=== PATIENT | male | born 2000 | race Caucasian/White ===

== ENCOUNTER 2022-06-02 00:13 | Inpatient (IN) | payer OTHER ==
[2022-06-02] MEDS ORDERED: LORazepam 2 MG/ML INJ IV STA ×7 (00:41→07:11)
[2022-06-02] MEDS ORDERED: SODIUM CHLORIDE 0.9% 1,000 ML IV ONE (00:41)
[2022-06-02 00:46] LABS: Glucose,Whole Blood 97 mg/dL (70-110)
--- NOTE | 2022-06-02 01:20 | CT ---
EXAMINATION TYPE: CT brain wo con DATE OF EXAM: 06/02/2022 COMPARISON: None HISTORY: AMS, S/P [id number] CT DLP: 1129.5 mGycm Automated exposure control for dose reduction was used. Ventricles of normal size. There is no mass effect or midline shift. No sign of intracranial hemorrha ge. The calvarium is intact. Skull base is intact. There is normal aeration of the mastoid sinuses. IMPRESSION: Negative unenhanced head CT scan.
[2022-06-02 01:40] LABS: Basophils # (A) 0.1 k/uL (0-0.2); Basophils % (A) 0 %; Eosinophils % (A) 0 %; HCT 44.7 % (39.0-53.0); HGB 15.8 gm/dL (13.0-17.5); Lymphocytes # (A) 1.1 k/uL (1.0-4.8); Lymphocytes % (A) 7 %; MCH 33.8 pg (25.0-35.0); MCHC 35.4 g/dL (31.0-37.0); MCV 95.3 fL (80.0-100.0); Mean Platelet Volume 9.2; Monocytes # (A) 0.8 k/uL (0-1.0); Monocytes % (A) 5 %; Neutrophils # (A) 14.5 k/uL (1.3-7.7); Neutrophils % (A) 87 %; Platelet Count 194 k/uL (150-450); RBC 4.69 m/uL (4.30-5.90); RDW 11.7 % (11.5-15.5); WBC 16.6 k/uL (4.0-11.0)
[2022-06-02 01:50] LABS: Partial Thromboplastin Time 22.8 sec (22.0-30.0)
[2022-06-02 01:52] LABS: AST 28 U/L (17-59); African American GFR (CKD) >90 (>60 ml/min/1.73 sqM); Albumin 5.1 g/dL (3.5-5.0); Alcohol <10 mg/dL; Alkaline Phosphatase 53 U/L (38-126); Anion Gap 17 mmol/L; Blood Urea Nitrogen 11 mg/dL (9-20); Calcium 9.9 mg/dL (8.4-10.2); Carbon Dioxide 17 mmol/L (22-30); Chloride 109 mmol/L (98-107); Glucose 84 mg/dL (74-99); Non-African American GFR(CKD) >90 (>60 ml/min/1.73 sqM); Potassium 5.1 mmol/L (3.5-5.1); Sodium 143 mmol/L (137-145); Total Bilirubin 0.4 mg/dL (0.2-1.3); Total Protein 7.6 g/dL (6.3-8.2)
--- NOTE | 2022-06-02 01:52 | ED ---
General Adult HPI - General Chief complaint: Head Injury Stated complaint: AMS Time Seen by Provider: 06/02/22 00:39 Source: EMS Mode of arrival: EMS Limitations: altered mental status - History of Present Illness Initial comments: This patient is a 21-year-old man who is brought to have evaluation related to possibility of head injury and a suspected seizure which had occurred on afternoon. The patient's mother reports that the patient had gone into the bathroom. He resides with his grandmother who reportedly heard a sound like someone falling. When she checked him it appeared he had a seizure. The patient's then regained consciousness and did not want to go to the hospital at that time. He wanted to rest. He spent most of the day resting. The patient's mother had actually brought him to have evaluation on that day but the hospital was very busy and he wanted to go home instead. Today he spent most of the day resting. Before I could see the patient, here in emergency department he had another seizure while in the while in the room. Onset/Timin -: days(s) Location: head - Related Data Previous Rx's Medication Instructions Recorded levETIRAcetam [Keppra] 1,000 mg PO Q12HR 60 Days #240 tab 06/03/22 Allergies Allergy/AdvReac Type Severity Reaction Status Date / Time No Known Allergies Allergy Verified 06/02/22 07:06 Review of Systems ROS Statement: Those systems with pertinent positive or pertinent negative responses have been documented in the HPI. ROS Other: All systems not noted in ROS Statement are negative. Limitations: ROS unobtainable due to patients medical condition (Patient appears postictal) Past Medical History - Past Family History family Additional Family Medical History / Comment(s): no reported seizures General Exam Limitations: no limitations General appearance: obtunded Head exam: Present: atraumatic, normocephalic Eye exam: Present: normal appearance, PERRL, EOMI. Absent: scleral icterus, conjunctival injection ENT exam: Present: normal oropharynx Neck exam: Present: normal inspection, full ROM. Absent: tenderness, meningismus Respiratory exam: Present: normal lung sounds bilaterally. Absent: respiratory distress, wheezes, rales, rhonchi, stridor Cardiovascular Exam: Present: regular rate, normal rhythm, normal heart sounds. Absent: systolic murmur, diastolic murmur, rubs, gallop GI/Abdominal exam: Present: soft. Absent: distended, tenderness, guarding, rebound, rigid, mass Extremities exam: Present: normal inspection, normal capillary refill. Absent: pedal edema, calf tenderness Back exam: Present: normal inspection. Absent: CVA tenderness (R), CVA tenderness (L) Neurological exam: Present: altered, CN II-XII intact, other (Patient is not able to comply with neurologic exam as she appears postictal. The patient does speak with no dysarthria but he is confused. He moves all 4 extremities without focal weakness.). Absent: motor sensory deficit Skin exam: Present: warm, dry, intact, normal color. Absent: rash Course Vital Signs 06/02/22 06/02/22 06/02/22 00:17 01:38 02:00 Temperature 98.2 F Pulse Rate 88 85 81 Respiratory 15 17 21 Rate Blood Pressure 127/54 109/43 109/43 O2 Sat by Pulse 100 94 L 94 L Oximetry 06/02/22 06/02/22 06/02/22 02:30 08:49 09:04 Temperature 97.7 F Pulse Rate 83 Respiratory 16 Rate Blood Pressure 101/46 141/85 O2 Sat by Pulse 96 Oximetry 06/02/22 14:38 Temperature Pulse Rate 102 H Respiratory 18 Rate Blood Pressure 111/54 O2 Sat by Pulse 99 Oximetry EKG Findings - EKG Results: EKG: interpreted by ERMD, sinus rhythm (Rate 85 bpm) - Blocks, [place], Hypertrophy, ST Abn: AV and intraventricular conduction: right bundle branch block (fixed/intermittent, complete/incomplete) (Incomplete) QRS axis and voltage: right axis deviation (+90 to +180) (Borderline) Medical Decision Making - Medical Decision Making Patient is 21-year-old man here to have evaluation of new onset of seizures. On the seizures. Uncomplicated, he does return to baseline. He is having prolonged postictal period here but he did have multiple doses of Ativan because she had IVs that had infiltrated. Case is discussed with admitting physician and with neurology on-call and their recommendations are incorporated. - Lab Data Result diagrams: 06/03/22 07:41 06/03/22 07:41 Lab Results 06/02/22 06/02/22 06/02/22 Range/Units 00:44 01:36 01:36 WBC 16.6 H (4.0-11.0) k/uL RBC 4.69 (4.30-5.90) m/uL Hgb 15.8 (13.0-17.5) gm/dL Hct 44.7 (39.0-53.0) % MCV 95.3 (80.0-100.0) fL MCH 33.8 (25.0-35.0) pg MCHC 35.4 (31.0-37.0) g/dL RDW 11.7 (11.5-15.5) % Plt Count 194 (150-450) k/uL MPV 9.2 Neutrophils % 87 % Lymphocytes % 7 % Monocytes % 5 % Eosinophils % 0 % Basophils % 0 % Neutrophils # 14.5 H (1.3-7.7) k/uL Lymphocytes # 1.1 (1.0-4.8) k/uL Monocytes # 0.8 (0-1.0) k/uL Eosinophils # 0.0 (0-0.7) k/uL Basophils # 0.1 (0-0.2) k/uL PT 11.0 (9.0-12.0) sec INR 1.0 (<1.2) APTT 22.8 (22.0-30.0) sec Sodium (137-145) mmol/L Potassium (3.5-5.1) mmol/L Chloride (98-107) mmol/L Carbon Dioxide (22-30) mmol/L Anion Gap mmol/L BUN (9-20) mg/dL Creatinine (0.66-1.25) mg/dL Est GFR (CKD-EPI)AfAm (>60 ml/min/1.73 sqM) Est GFR (CKD-EPI)NonAf (>60 ml/min/1.73 sqM) Glucose (74-99) mg/dL POC Glucose (mg/dL) 97 (70-110) mg/dL POC Glu Sales Assistant Institutional Sales ID Florin Reyna Calcium (8.4-10.2) mg/dL Total Bilirubin (0.2-1.3) mg/dL AST (17-59) U/L ALT (4-49) U/L Alkaline Phosphatase (38-126) U/L Troponin I (0.000-0.034) ng/mL Total Protein (6.3-8.2) g/dL Albumin (3.5-5.0) g/dL Serum Alcohol mg/dL 06/02/22 06/02/22 Range/Units 01:36 01:36 WBC (4.0-11.0) k/uL RBC (4.30-5.90) m/uL Hgb (13.0-17.5) gm/dL Hct (39.0-53.0) % MCV (80.0-100.0) fL MCH (25.0-35.0) pg MCHC (31.0-37.0) g/dL RDW (11.5-15.5) % Plt Count (150-450) k/uL MPV Neutrophils % % Lymphocytes % % Monocytes % % Eosinophils % % Basophils % % Neutrophils # (1.3-7.7) k/uL Lymphocytes # (1.0-4.8) k/uL Monocytes # (0-1.0) k/uL Eosinophils # (0-0.7) k/uL Basophils # (0-0.2) k/uL PT (9.0-12.0) sec INR (<1.2) APTT (22.0-30.0) sec Sodium 143 (137-145) mmol/L Potassium 5.1 (3.5-5.1) mmol/L Chloride 109 H (98-107) mmol/L Carbon Dioxide 17 L (22-30) mmol/L Anion Gap 17 mmol/L BUN 11 (9-20) mg/dL Creatinine 0.82 (0.66-1.25) mg/dL Est GFR (CKD-EPI)AfAm >90 (>60 ml/min/1.73 sqM) Est GFR (CKD-EPI)NonAf >90 (>60 ml/min/1.73 sqM) Glucose 84 (74-99) mg/dL POC Glucose (mg/dL) (70-110) mg/dL POC Glu Sales Assistant Institutional Sales ID Calcium 9.9 (8.4-10.2) mg/dL Total Bilirubin 0.4 (0.2-1.3) mg/dL AST 28 (17-59) U/L ALT 31 (4-49) U/L Alkaline Phosphatase 53 (38-126) U/L Troponin I <0.012 (0.000-0.034) ng/mL Total Protein 7.6 (6.3-8.2) g/dL Albumin 5.1 H (3.5-5.0) g/dL Serum Alcohol <10 mg/dL Critical Care Time Critical Care Time: Yes (30 minutes) Disposition Clinical Impression: New onset seizure Disposition: ADMITTED IP TO THIS [facility] Condition: Stable Is patient prescribed a controlled substance at d/c from ED?: No
[2022-06-02 02:00] LABS: ALT 31 U/L (4-49)
[2022-06-02] MEDS ORDERED: levETIRAcetam IV 1,000 MG in SALINE 1 100ML.BAG IVPB STA (03:16)
[2022-06-02] MEDS ORDERED: ACETAMINOPHEN TAB 325 MG TAB PO PRN (03:25)
[2022-06-02] MEDS ORDERED: NALOXONE 0.4 MG/ML 1 ML VIAL IV PRN (03:25)
--- NOTE | 2022-06-02 03:31 | XR ---
EXAMINATION TYPE: XR chest 1V portable DATE OF EXAM: 06/02/2022 COMPARISON: NONE HISTORY: Pain TECHNIQUE: Single view FINDINGS: Heart is normal lungs are clear. Diaphragm is normal. Bony thorax is intact IMPRESSION: Nor mal chest
[2022-06-02] MEDS: SODIUM CHLORIDE 0.9% 1,000 ML IV SCH ×2 (04:10→16:38)
[2022-06-02] MEDS ORDERED: HALOPERIDOL LACTATE 5 MG/ML 1 ML VIAL IVP PRN (04:13)
[2022-06-02] MEDS ORDERED: LORazepam 2 MG/ML INJ IV PRN ×4 (05:16→15:55)
--- NOTE | 2022-06-02 05:25 | P.HPIM ---
History of Present Illness H&P Date: 06/02/22 Chief Complaint: seizure 21 year old male with no significant past medical history patient was brought in for evaluation after a head injury . he was home when his grandma heard a thud in the bathroom, she found the patient having a seizure in the bathroom, and possible head injury the patient begged his grandmother not to take him to the hospital , then his mom learned about that , brought him to the ED, was full and took him back, however after he experienced another seizure she brought him in here she is not aware of any drugs, but does report that he drinks alcohol , did not quantify amount or frequency in the ED, he manifested aggressive behavior , and experienced multiple episodes of seizure. head CT was negative blood work over all unremarkable urine drug screen still pending patient himself unable to provide any history , he remains either agitated , or sedated. patient has no history of seizure, or head injury from before Review of Systems ROS unobtainable: due to mental status Past Medical History - Past Family History family Additional Family Medical History / Comment(s): no reported seizures Medications and Allergies Allergies Allergy/AdvReac Type Severity Reaction Status Date / Time No Known Allergies Allergy Verified 06/02/22 00:17 Physical Exam Vitals: Vital Signs Temp Pulse Resp BP Pulse Ox 06/02/22 02:30 83 16 101/46 96 06/02/22 02:00 81 21 109/43 94 L 06/02/22 01:38 85 17 109/43 94 L 06/02/22 00:17 98.2 F 88 15 127/54 100 Intake and Output 06/01/22 06/01/22 06/02/22 14:59 22:59 06:59 Other: Weight 63.503 kg Constitutional: aggressive behavior, agitated Eyes: Anicteric sclerae, moist conjunctiva, Pupils equal round reactive to light ENMT: NC/AT Lungs: Clear to auscultation Clear to percussion Normal respiratory effort, no accessory muscle use Cardiovascular: Heart regular in rate and rhythm, No murmurs, gallops, or rubs No peripheral edema Abdominal: Soft Nontender, no guarding, rebound or rigidity Abdomen moving with respiration Normoactive bowel sounds Skin: Normal temperature, tone, texture, turgor Extremities: No digital cyanosis No clubbing Pedal pulses intact and symmetrical Radial pulses intact and symmetrical No calf tenderness Psychiatric: agitated and aggressive toward staff resisting care, currently in 4 point restraints for his safety and staff safety Neuro unable to perform properly , patient uncooperative Lymphatics: no palpable cervical or supraclavicular lymph nodes Results CBC & Chem 7: 06/02/22 01:36 06/02/22 01:36 Labs: Abnormal Lab Results - Last 24 Hours (Table) 06/02/22 06/02/22 Range/Units 01:36 01:36 WBC 16.6 H (4.0-11.0) k/uL Neutrophils # 14.5 H (1.3-7.7) k/uL Chloride 109 H (98-107) mmol/L Carbon Dioxide 17 L (22-30) mmol/L Albumin 5.1 H (3.5-5.0) g/dL Assessment and Plan Assessment: recurrent seizures , new onset closed head injury suspected some substance abuse, still await urine drug screen supportive care 4 point restraints for patient and staff safety IVF hdyration with normal saline ativan PRN haldol PRN Benzo per CIWA thiamine neuro eval neuro checks seizure precautions loaded with 1g Keppra blood work unremarkable urine drug screen pending brain CT negative for acute pathology full code DVT PPX lovenox sc daily
[2022-06-02] MEDS ORDERED: HALOPERIDOL LACTATE 5 MG/ML 1 ML VIAL IM STA (07:11)
[2022-06-02 09:51] LABS: Appearance,Urine Clear (Clear); Bilirubin,Urine Negative (Negative); Blood,Urine Moderate (Negative); Color,Urine Yellow; Glucose,Urine (UA) Negative (Negative); Ketones,Urine 2+ (Negative); Leukocyte Esterase,Urine Negative (Negative); Mucus,Urine Moderate /hpf; Nitrite,Urine Negative (Negative); PH, Urine 5.5 (5.0-8.0); Protein,Urine Trace (Negative); RBC,Urine 45 /hpf (0-5); Specific Gravity,Urine 1.028 (1.001-1.035); Squamous Epithelial Cell,Urine 1 /hpf (0-4); Urobilinogen,Urine <2.0 mg/dL (<2.0); WBC,Urine 3 /hpf (0-5)
[2022-06-02 09:55] LABS: Cocaine Screen,Urine Not Detected (NotDetected); Phencyclidine Screen,Urine Not Detected (NotDetected); Urn Cannabinoid Scrn Detected (NotDetected)
[2022-06-02 09:56] LABS: Amphetamine Screen,Urine Not Detected (NotDetected); Barbiturate Screen,Urine Not Detected (NotDetected); Benzodiazepines Screen,Urine Detected (NotDetected); Methadone Screen, Urine Not Detected (NotDetected); Opiate Screen,Urine Not Detected (NotDetected); Oxycodone Screen, Urine Not Detected (NotDetected); Tricyclic Antidepressant,Urine Not Detected (NotDetected)
[2022-06-02] MEDS: ENOXAPARIN 40 MG/0.4 ML SYRINGE SQ SCH (09:59)
--- NOTE | 2022-06-02 10:34 | EEG ---
ELECTROENCEPHALOGRAM REPORT PREAMBLE: This is a 21-year-old male brought to the hospital for new onset seizure. No previous history of seizures. EEG FINDINGS: This is a 21-channel digital EEG recorded with video component, utilizing 10/20 international system with referential and bipolar montages. The entire recording consists of patient being asleep, with presence of bilaterally symmetric theta, with some delta frequency. Some superimposed fast frequency beta activity was also seen. A lot of sleep spindles were seen throughout the study. No definitive focal or generalized epileptiform activity was seen. The awake pattern not seen in the entire study. Photic stimulation and hyperventilation were not performed. IMPRESSION: This is probably a normal sleep EEG. Awake pattern not seen in the entire study, therefore underlying encephalopathy cannot be ruled out. Suggest prolonged EEG, if your suspicion for seizure disorder is high. No obvious epileptiform activity was seen in this study. MMODL / IJN: [id number] /
[2022-06-02] MEDS ORDERED: ACYCLOVIR SODIUM 800 MG in SODIUM CHLORIDE 0.9% 100 ML IVPB STA (11:48)
[2022-06-02] MEDS ORDERED: ACYCLOVIR SODIUM 650 MG in SODIUM CHLORIDE 0.9% 100 ML IVPB SCH (12:00)
--- NOTE | 2022-06-02 13:40 | P.CNNES ---
History of Present Illness Consult date: 06/02/22 Requesting physician: Polo Urena Reason for Consult: New onset seizures History of Present Illness: Patient is a 21-year-old male, brought to the hospital by ambulance remote sensing technician today at 12:13 AM for new onset seizure. Patient's mother was present at this time, who states that yesterday around 1-2 PM she heard a thud, and she went in and saw he was having a seizure. She tried to call the ambulance, but patient came out of it and did not want her to call the ambulance. He complained of headache rest of the day, and stayed in bed. At night patient's mother went in and saw him, his right arm/hand cramping, looked up confused as a biting of the tongue. She then called the ambulance. As per EMS flow sheet, when they arrived, found patient laying in bed. Patient was noted to be lethargic and confused. Patient possibly had a few seizures over the last day and a half per family. Patient hit his head yesterday. The patient became combative and assisted to the stretcher. Patient became slightly more alert in route. Patient's vitals at the scene was blood pressure 148/72, pulse rate 100, respiration 18, saturation 96% Blood test shows WBC 16.6 hemoglobin 15.8 with borderline MCV 95.3, platelets 194. PT/PTT normal, CMP normal. Troponin negative. UA negative. Urine drug screen positive for benzodiazepine and marijuana. Blood alcohol level negative. CT head is normal. I personally reviewed CT head, agree with the findings. Chest x-ray negative. EKG shows sinus rhythm. While he was in the ER before seen by the ED staff, patient had another seizure in the room. Patient was somewhat agitated postictally. Patient received 2 mg of Ativan. He had a third seizure in the ER. Patient was very agitated. He received total of 16 mg of Ativan overnight. Now patient is somnolent, e ncephalopathic, possibly postictal. At present he denies headache. We tried to us patient repeatedly about any illicit drug use, but he denies. No known drug use except for occasional marijuana. Patient denies alcoholism. Patient's mother states that she has seen him sometimes coming home drunk, but not frequently and he is not a drinker on a regular basis. Review of Systems Patient only able to deny any headache. Further review of systems could not be obtained from the patient, the nursing staff or patient's mother. ROS unobtainable: due to mental status Past Medical History - Past Family History family Additional Family Medical History / Comment(s): no reported seizures Medications and Allergies Home Medications Medication Instructions Recorded Confirmed Type No Known Home Medications 06/02/22 06/02/22 History Allergies Allergy/AdvReac Type Severity Reaction Status Date / Time No Known Allergies Allergy Verified 06/02/22 07:06 Physical Examination - Vital Signs Vital Signs: Vital Signs Temp Pulse Resp BP Pulse Ox 06/02/22 09:04 141/85 06/02/22 08:49 97.7 F 06/02/22 02:30 83 16 101/46 96 06/02/22 02:00 81 21 109/43 94 L 06/02/22 01:38 85 17 109/43 94 L 06/02/22 00:17 98.2 F 88 15 127/54 100 Intake and Output 06/01/22 06/02/22 06/02/22 22:59 06:59 14:59 Other: Weight 63.503 kg Patient is a young male, who appears restless, slightly irritable, keeps his head under the cover. He is not cooperative with the examination. Patient is encephalopathic, probably postictal, probable effect of excessive doses of Ativan received overnight. Limited speech was clear. Attention, concentration and fund of knowledge is limited. On cranial nerve examination, pupils are equal, round and reacting to light, visual jerry could not be tested. No obvious gaze deviation. He did not cooperate for extraocular muscles testing. His face is symmetric. He did not protrude his tongue, and lower cranial nerves could not be tested. No obvious drooling noted. On muscle strength testing, patient moves his arms and legs equally. He did not cooperate with the examination at all. Deep tendon reflexes are symmetric 2+ and plantars are withdrawal. Sensory to touch cannot be assessed. Patient does withdraw to painful stimuli. Cerebellar function cannot be tested. Tone is equal bilaterally. Gait deferred.. On general examination, there is no carotid bruit or murmur, S1-S2 audible. Chest is clear on consultation. Abdomen is soft nontender. No organomegaly, bowel sounds present. Peripheral pulses are present. No edema. Results - Laboratory Findings CBC and BMP: 12/31/22 07:41 06/03/22 07:41 Abnormal Lab Findings: Abnormal Labs 06/02/22 06/02/22 06/02/22 01:36 01:36 09:03 WBC 16.6 H Neutrophils # 14.5 H Chloride 109 H Carbon Dioxide 17 L Albumin 5.1 H Urine Protein Trace H Urine Ketones 2+ H Urine Blood Moderate H Urine RBC 45 H Urine Mucus Moderate H U Benzodiazepines Scrn Detected H U Marijuana (THC) Screen Detected H Assessment and Plan Assessment: * New onset seizure, unclear etiology. Patient had 3 seizures in 24 hours (1 at home and 2 in the ER). No obvious provoking factors identified. Rule out encephalitis/meningitis. Patient denies any illicit drug use. Patient denies headache. Patient afebrile. * Encephalopathy, perhaps related to Ativan(received 16 mg in the last 24 hours). Also possibility of postictal state, rule out encephalitis. * Marijuana use Plan: * Stat EEG was performed, which revealed probably normal sleep EEG. Awake pattern not seen in the entire study, therefore underlying encephalopathy cannot be ruled out. Suggest prolonged EEG, if your suspicion for seizures disorder is high. No obvious epileptiform activity was seen in the study. * MRI of the brain with and without contrast * Lumbar puncture to rule out encephalitis, meningitis. * Patient loaded with Keppra 1000 mg IV PB. Continue Keppra 1000 mg twice a day. * Patient empirically started on acyclovir IV 10 mg/kg every 8 hours, ceftriaxone 2 g every 12 hours. * Agree with thiamine, CIWA protocol. Patient denies significant alcoholism however. * Discussed with patient's mother and nursing staff in detail. * Neurology will follow. Thank you for the consult. Time with Patient: Greater than 30
--- NOTE | 2022-06-02 15:26 | P.PCN ---
Date of Procedure: 06/02/22 Anesthesia: MAC (IV sedation with anesthesia Department) Surgeon: Rosana Mcmullen Pathology: none sent Condition: stable Disposition: other Description of Procedure: I was asked to perform a lumbar puncture to rule out meningitis for new onset of seizures. The patient is 21-year-old, non-cooperative due to mental status changes. The anesthesia Department provided sedation for the procedure using fentanyl and Versed. Even with sedation the patient was still having sudden uncontrolled movements. It took me a few attempts to get into the intrathecal space. I used 22-gauge, 3.5 " Quincke spinal needle in the left lateral decubitus position at the L4 5 level. Skin was prepped with ChloraPrep and draped in a sterile manner. The spinal needle was introduced through the localized area of skin using lidocaine 1%. The opening pressure was very low less than 1 cm of water. Spinal fluid looks clear and was coming out slower than usual. I was able to collect only 0.5 MLS of spinal fluid in each tube ,3 tubes were collected. Needle was withdrawn intact. A Band-Aid was applied at the skin entry site. Thank you for the consultation
--- NOTE | 2022-06-02 16:01 | P.PN ---
Subjective Progress Note Date: 06/02/22 Hospital course: Patient is a very pleasant 21-year-old male with no reported past medical history. He presented to the emergency department overnight with his mother to be evaluated for possible head injury and witnessed seizure activity. Patient was reportedly in his normal state of health and at home with his grandmother when his grandma suddenly heard a loud "Thud" in the bathroom shortly after followed by strange noises resulting in her walking in and finding her grandson with active seizure-like activity on the bathroom floor. She immediately went to his side reporting seizure activity only lasting momentarily followed by episode of slight confusion. Patient's grandmother called for patient's mother who reports she attempted to bring her son into the hospital, but he was completely a dense coming to the hospital stating that he was fine and he just fell and hit his head. Patient's mother reports she was watching her son closely because he has never had a fall or head injury before and has never had any seizure activity nor family history of seizures. She reports upon checking on him during the night noticed that he was not responding to her appropriately and was doing a strange motion with his right hand so she brought him to the e mergency department for evaluation. After arriving to the emergency department patient was noted by staff to again have active seizure activity with positive involuntary loss of bladder and biting of tongue 2 events followed by extended periods of confusion and aggressive behaviors. Patient required extensive chemical sedation with a total of 16 mg of Ativan, 5 mg of Haldol and 1000 mg of Keppra within an 8 hour period. The patient is now postictal/sedated, he is awoken via repeated verbal stimuli and alert to person, place, time, and situation but drifting back into sleep during conversation requiring repeated verbal stimuli. When asked, patient admits to occasional alcohol use on weekends and at times drinking until he is drunk, but denies binge drinking and denies any recent drinking over the holidays, he does report daily cannabis use but denies any other drug use. Patient does have erythema and abrasion to left side of forehead resulting from initial fall/seizure occurring prior to arrival in the hospital. Patient's mother at bedside reports they believe her son struck his head on the ceramic tub when he fell in the bathroom prior to or during first seizure. Diagnostic testing completed and reviewed: Lab findings: CBC revealed leukocytosis with WBC count of 16.6. CMP revealing hyperchloremia with chloride of 109 and hypocarbia with carbon dioxide of 17. Urinalysis positive for ketones, blood, and protein. Urine drug screen positive for benzodiazepines and marijuana. Serum alcohol level is less than 10. CT brain without contrast negative for acute intercranial process. EKG showing normal sinus rhythm at 85 bpm with peaked T waves, no previous EKGs available for comparison and BMP revealing potassium of 5.1 so no evidence of hyperkalemia. Chest x-ray negative for acute cardiopulmonary process. EEG resulted as normal EEG at this time. EEG was completed status post receiving 16 mg of Ativan, 5 mg of Haldol, and 1000 mg of Keppra within the 8 hour period. Physical exam: Patient remains sedated/postictal. He has had a total of 16 mg of Ativan in addition to Haldol and Keppra over the past 8 hours. Patient's mother remains at bedside. Patient will awaken after repeated verbal stimuli. Patient following limited commands, and after multiple attempts at getting patient to roll onto his back for assessment he did momentarily and was moving all 4 extremities independently and symmetrically. Patient answering minimal questions and then rolled back onto stomach and was no longer cooperative or unable to cooperate with assessment . Dr. Sanchez, neurologist also at bedside during assessment and planning for lumbar puncture. Vital signs reviewed and stable. General: Nontoxic, no distress and appears stated age. Derm: Skin warm and dry, normal coloration for ethnicity. Head: Normocephalic and symmetric. Patient with noted erythema and abrasion to left forehead, no hematoma or indentation. Eyes: EOMs intact, no lid lag, and anicteric sclera. Pupils equal 4 mm and reactive Mouth: no lip lesions, mucus membranes moist Cardiovascular: regular rate and rhythm with normal S1S2, no murmur, positive posterior tibial pulses bilaterally, and cap refill < 2 seconds. Lungs: Respirations even, regular, and unlabored on room air. Lungs CTA bilaterally, no rhonchi, no rales, no wheezing, and no accessory muscle usage. Abdominal: soft, nontender to palpation, no guarding, no appreciable organomegaly Ext: Movement intact, patient moving all 4 extremities independently.. No gross muscle atrophy, no edema, no contractures Neuro: Speech clear, face symmetrical. Patient moving all 4 extremities independently with no focal deficits noted. Patient not following commands at this time as he remains postictal/sedated and minimally cooperative. Psych: Alert and oriented to person, place, time, and situation after repeated verbal stimuli to awaken as patient is currently postictal/sedated. Assessment and Plan of Care: Recurrent seizure activity, new onset Closed head injury -Seizure precautions, aspiration precautions, and fall precautions in place. -Telemetry monitoring -Keppra 1000 mg twice a day IVPB -Ativan 2 mg IVP as needed for active seizure activity only. -Neurology following, appreciate further recommendations -Patient informed of [place] law stating no driving until seizure free for 6 months. Patient also instructed to avoid climbing ladders, operating dangerous or heavy machinery or unsupervised swimming until seizure free for 6 months. Alcohol use disorder, possible alcohol withdrawal seizures (patient admits to alcohol use but unclear amount) -[facility] Protocol with symptom triggered medication management with benzodiazepines. -continuous IV fluid hydration. -Thiamine 100 mg twice a day -Multivitamin daily -Folate 1 mg daily -Seizure, fall, aspiration, and elopement precautions in place. -Urine drug screen -Continued close monitoring of electrolytes and replace as needed. -Telemetry monitoring. CODE STATUS: Full code DVT prophylaxis: Lovenox Discussed with: Patient's mother, neurologist, and RN Anticipated discharge date: Clinical course to determine Anticipated discharge place: Home A total of 39 minutes was spent on the care of this complex patient more than 50% of the time was spent in counseling and care coordination. Donta Barajas NP rendered care for this patient independently, reviewed the findings and plan as documented in the note above. I did not physically speak with or examine the patient on this date. Objective - Vital Signs Vital signs: Vital Signs Temp 98.2 F 06/02/22 00:17 Pulse 83 06/02/22 02:30 Resp 16 06/02/22 02:30 BP 101/46 06/02/22 02:30 Pulse Ox 96 06/02/22 02:30 FiO2 Intake & Output 06/01/22 06/02/22 06/02/22 18:59 06:59 18:59 Weight 63.503 kg - Labs CBC & Chem 7: 06/02/22 01:36 06/02/22 01:36 Labs: Abnormal Lab Results - Last 24 Hours (Table) 06/02/22 06/02/22 Range/Units 01:36 01:36 WBC 16.6 H (4.0-11.0) k/uL Neutrophils # 14.5 H (1.3-7.7) k/uL Chloride 109 H (98-107) mmol/L Carbon Dioxide 17 L (22-30) mmol/L Albumin 5.1 H (3.5-5.0) g/dL
[2022-06-02 16:09] LABS: Glucose,CSF 46 mg/dL (40-70); Total Protein,CSF 53 mg/dL (12-60)
[2022-06-02] MEDS: levETIRAcetam IV 1,000 MG in SALINE 1 100ML.BAG IVPB SCH ×2 (16:38→21:04)
[2022-06-02 18:11] LABS: Appearance,CSF Clear; CSF Tube Number 2; CSF Tube Volume 0.5; Nucleated Cells, CSF 1 u/L (0-5); Red Blood Cell,CSF 3130 u/L (0-10)
[2022-06-02 18:16] LABS: Red Blood Cell, CSF Fresh 100 %
[2022-06-02] MEDS: ACYCLOVIR SODIUM 800 MG in SODIUM CHLORIDE 0.9% 100 ML IVPB SCH (23:46)
[2022-06-03] MEDS: SODIUM CHLORIDE 0.9% 1,000 ML IV SCH ×2 (02:41→04:16)
[2022-06-03 08:20] LABS: HCT 38.8 % (39.0-53.0); HGB 13.9 gm/dL (13.0-17.5); MCH 33.8 pg (25.0-35.0); MCHC 35.7 g/dL (31.0-37.0); MCV 94.6 fL (80.0-100.0); Mean Platelet Volume 9.3; Platelet Count 147 k/uL (150-450); RDW 11.7 % (11.5-15.5); WBC 6.8 k/uL (4.0-11.0)
[2022-06-03 08:29] LABS: ALT 14 U/L (4-49); AST 19 U/L (17-59); African American GFR (CKD) >90 (>60 ml/min/1.73 sqM); Albumin 3.9 g/dL (3.5-5.0); Alkaline Phosphatase 44 U/L (38-126); Anion Gap 8 mmol/L; Blood Urea Nitrogen 8 mg/dL (9-20); Calcium 8.6 mg/dL (8.4-10.2); Carbon Dioxide 24 mmol/L (22-30); Chloride 109 mmol/L (98-107); Glucose 78 mg/dL (74-99); Magnesium 1.8 mg/dL (1.6-2.3); Non-African American GFR(CKD) >90 (>60 ml/min/1.73 sqM); Potassium 3.6 mmol/L (3.5-5.1); Sodium 141 mmol/L (137-145); Total Bilirubin 0.6 mg/dL (0.2-1.3); Total Protein 5.9 g/dL (6.3-8.2)
[2022-06-03] MEDS ORDERED: FOLIC ACID 1 MG TAB PO SCH (09:00)
[2022-06-03] MEDS ORDERED: MULTIVITAMINS, THERA 1 EACH TAB PO SCH (09:00)
[2022-06-03] MEDS ORDERED: THIAMINE 100 MG TAB PO SCH (09:00)
[2022-06-03] MEDS: levETIRAcetam IV 1,000 MG in SALINE 1 100ML.BAG IVPB SCH ×2 (10:22→12:40)
[2022-06-03] MEDS: ACYCLOVIR SODIUM 800 MG in SODIUM CHLORIDE 0.9% 100 ML IVPB SCH ×3 (10:22→17:36)
[2022-06-03] MEDS: ENOXAPARIN 40 MG/0.4 ML SYRINGE SQ SCH (10:37)
[2022-06-03 10:48] VITALS: RESP 16
--- NOTE | 2022-06-03 12:21 | MR ---
EXAMINATION TYPE: MR brain wo/w con DATE OF EXAM: 06/03/2022 11:59 AM CLINICAL INDICATION:Male, 22 years old with history of New seizures; COMPARISON: Brain 06/02/2022 TECHNIQUE: Multi planar, multi sequence imaging was performed through the brain including: T1, T2, In version recovery, susceptibility weighted imaging and gradient echo imaging and Diffusion weighted im aging. The patient was then given intravenous contrast and multi planar, T1 fat-saturation images wer e obtained. IV Contrast: 8 cc Gadavist FINDINGS: The cannon-white junctions, ventricular system, basal cisterns appear unremarkable. Diffusion-weighted imaging shows no evidence of restricted diffusion to suggest acute/subacute infarct. Intracranial art erial flow voids are maintained. Midline structures show no abnormality. The susceptibility weighted images do not reveal any evidence for micro-hemorrhage. After administration of gadolinium, no abnorm al enhancement is seen. Suspected valorie cisterna magna CSF attenuating posterior aspect of the posterior cranial fossa. The bone marrow signal is within normal limits. Paranasal sinuses and mastoid air cells: Mild scattered paranasal sinus disease. Visualized orbits: Orbital contents are intact. IMPRESSION: No evidence of intracranial mass, acute/subacute infarct, or abnormal enhancement.
[2022-06-03] MEDS ORDERED: levETIRAcetam 500 MG TAB PO SCH (14:30)
--- NOTE | 2022-06-03 14:38 | P.PN ---
Subjective Progress Note Date: 06/03/22 Hospital course: Patient is a very pleasant 21-year-old male with no reported past medical history. He presented to the emergency department overnight with his mother to be evaluated for possible head injury and witnessed seizure activity. Patient was reportedly in his normal state of health and at home with his grandmother when his grandma suddenly heard a loud "Thud" in the bathroom shortly after followed by strange noises resulting in her walking in and finding her grandson with active seizure-like activity on the bathroom floor. She immediately went to his side reporting seizure activity only lasting momentarily followed by episode of slight confusion. Patient's grandmother called for patient's mother who reports she attempted to bring her son into the hospital, but he was completely a dense coming to the hospital stating that he was fine and he just fell and hit his head. Patient's mother reports she was watching her son closely because he has never had a fall or head injury before and has never had any seizure activity nor family history of seizures. She reports upon checking on him during the night noticed that he was not responding to her appropriately and was doing a strange motion with his right hand so she brought him to the e mergency department for evaluation. After arriving to the emergency department patient was noted by staff to again have active seizure activity with positive involuntary loss of bladder and biting of tongue 2 events followed by extended periods of confusion and aggressive behaviors. Patient required extensive chemical sedation with a total of 16 mg of Ativan, 5 mg of Haldol and 1000 mg of Keppra within an 8 hour period. The patient is now postictal/sedated, he is awoken via repeated verbal stimuli and alert to person, place, time, and situation but drifting back into sleep during conversation requiring repeated verbal stimuli. When asked, patient admits to occasional alcohol use on weekends and at times drinking until he is drunk, but denies binge drinking and denies any recent drinking over the holidays, he does report daily cannabis use but denies any other drug use. Patient does have erythema and abrasion to left side of forehead resulting from initial fall/seizure occurring prior to arrival in the hospital. Patient's mother at bedside reports they believe her son struck his head on the ceramic tub when he fell in the bathroom prior to or during first seizure episode. Diagnostic testing completed and reviewed: Lab findings: CBC revealed leukocytosis with WBC count of 16.6. CMP revealing hyperchloremia with chloride of 109 and hypocarbia with carbon dioxide of 17. Urinalysis positive for ketones, blood, and protein. Urine drug screen positive for benzodiazepines and marijuana. Serum alcohol level is less than 10. CT brain without contrast negative for acute intercranial process. EKG showing normal sinus rhythm at 85 bpm with peaked T waves, no previous EKGs available for comparison and BMP revealing potassium of 5.1 so no evidence of hyperkalemia. Chest x-ray negative for acute cardiopulmonary process. EEG resulted as normal EEG at this time. EEG was completed status post receiving 16 mg of Ativan, 5 mg of Haldol, and 1000 mg of Keppra within the 8 hour period. Physical exam: Patient seen and fully evaluated at bedside this morning. Patient to be leading and round. Patient appears to be doing well this morning. Patient is back to baseline mentation he is alert and oriented to person, place, time, and situation. No longer lethargic/sedated. Patient has had no further episodes of seizure activity and has received no further doses of Ativan. It remains unclear as to precipitating factors/etiology of recurrent seizure activity. Patient continues to deny having any drug use and reports only occasional alcohol use approximately 2 times a week and denies drinking heavily. Morning labs reviewed and stable. Leukocytosis has resolved. Vital signs reviewed and stable. General: Nontoxic, no distress and appears stated age. Derm: Skin warm and dry, normal coloration for ethnicity. Head: Normocephalic and symmetric. Patient with noted erythema and abrasion to left forehead, no hematoma or indentation. Eyes: EOMs intact, no lid lag, and anicteric sclera. Pupils equal 4 mm and reactive Mouth: no lip lesions, mucus membranes moist Cardiovascular: regular rate and rhythm with normal S1S2, no murmur, positive posterior tibial pulses bilaterally, and cap refill < 2 seconds. Lungs: Respirations even, regular, and unlabored on room air. Lungs CTA bilaterally, no rhonchi, no rales, no wheezing, and no accessory muscle usage. Abdominal: soft, nontender to palpation, no guarding, no appreciable organomegaly Ext: Movement intact, patient moving all 4 extremities independently.. No gross muscle atrophy, no edema, no contractures Neuro: Speech clear, face symmetrical. Patient moving all 4 extremities independently with no focal deficits noted. Patient not following commands at this time as he remains postictal/sedated and minimally cooperative. Psych: Alert and oriented to person, place, time, and situation after repeated verbal stimuli to awaken as patient is currently postictal/sedated. Assessment and Plan of Care: Recurrent seizure activity, new onset Closed head injury -Seizure precautions, aspiration precautions, and fall precautions in place. -Telemetry monitoring -At this time we will continue Keppra 1000 mg twice a day IVPB -Ativan 2 mg IVP as needed for active seizure activity only. -Neurology following, appreciate further recommendations -Lumbar puncture completed -Patient scheduled for MRI later today -Patient informed of [place] state law stating no driving until seizure free for 6 months. Patient also instructed to avoid climbing ladders, operating dangerous or heavy machinery or unsupervised swimming until seizure free for 6 months. Alcohol use disorder, possible alcohol withdrawal seizures (patient admits to alcohol use but unclear amount) -[facility] Protocol with symptom triggered medication management with benzodiazepines. -continuous IV fluid hydration. -Thiamine 100 mg twice a day -Multivitamin daily -Folate 1 mg daily -Seizure, fall, aspiration, and elopement precautions in place. -Urine drug screen -Continued close monitoring of electrolytes and replace as needed. -Telemetry monitoring. CODE STATUS: Full code DVT prophylaxis: Lovenox Discussed with: Patient, Patient's mother, neurologist, and RN Anticipated discharge date: Clinical course to determine Anticipated discharge place: Home A total of 35 minutes was spent on the care of this complex patient more than 50% of the time was spent in counseling and care coordination. Donta Barajas NP rendered care for this patient independently, reviewed the findings and plan as documented in the note above. I did not physically speak with or examine the patient on this date. Objective - Vital Signs Vital signs: Vital Signs Temp 98.1 F 06/03/22 04:00 Pulse 68 06/03/22 04:00 Resp 18 06/03/22 04:00 BP 97/54 06/03/22 04:00 Pulse Ox 97 06/03/22 04:00 FiO2 Intake & Output 06/02/22 06/03/22 06/03/22 18:59 06:59 18:59 Intake Total 128 Balance 128 Weight 85.4 kg Intake: IV 10 Invasive Line 3 10 Oral 118 Other: Voiding Method Urinal # Voids 1 - Labs CBC & Chem 7: 06/03/22 07:41 06/03/22 07:41 Labs: Abnormal Lab Results - Last 24 Hours (Table) 06/02/22 06/02/22 06/03/22 Range/Units 09:03 15:15 07:41 RBC 4.10 L (4.30-5.90) m/uL Hct 38.8 L (39.0-53.0) % Plt Count 147 L (150-450) k/uL Chloride (98-107) mmol/L BUN (9-20) mg/dL Total Protein (6.3-8.2) g/dL Urine Protein Trace H (Negative) Urine Ketones 2+ H (Negative) Urine Blood Moderate H (Negative) Urine RBC 45 H (0-5) /hpf Urine Mucus Moderate H (None) /hpf CSF RBC 3130 H (0-10) u/L U Benzodiazepines Scrn Detected H (NotDetected) U Marijuana (THC) Screen Detected H (NotDetected) 06/03/22 Range/Units 07:41 RBC (4.30-5.90) m/uL Hct (39.0-53.0) % Plt Count (150-450) k/uL Chloride 109 H (98-107) mmol/L BUN 8 L (9-20) mg/dL Total Protein 5.9 L (6.3-8.2) g/dL Urine Protein (Negative) Urine Ketones (Negative) Urine Blood (Negative) Urine RBC (0-5) /hpf Urine Mucus (None) /hpf CSF RBC (0-10) u/L U Benzodiazepines Scrn (NotDetected) U Marijuana (THC) Screen (NotDetected) Microbiology - Last 24 Hours (Table) 06/02/22 15:15 CSF Gram Stain - Preliminary Cerebral Spinal Fluid CSF Culture - Preliminary
--- NOTE | 2022-06-03 15:23 | P.DS ---
Providers Date of admission: 06/02/22 03:25 Expected date of discharge: 06/03/22 Attending physician: Tristan Rubi MD Consults: 06/02/22 03:25 Consult Physician Routine Consulting Provider: Haritha Sanchez Consult Reason/Comments: New onset seizures Do you want consulting provider notified?: Yes Primary care physician: Stated None Hospital Course: Discharge Diagnosis: Recurrent seizure activity, new onset. Patient discharged on Keppra 1000 mg twice a day and to follow up outpatient with PCP in 1-2 days and neurologist in 1-2 weeks. Patient informed of [place] state law stating no driving until seizure free for 6 months. Patient also instructed to avoid climbing ladders, operating dangerous or heavy machinery or unsupervised swimming until seizure free for 6 months. Closed head injury. Alcohol use disorder, possible alcohol withdrawal seizures (patient admits to alcohol use but denies binge drinking or daily drinking) Leukocytosis resolved Leannedoreen Orantes started Hospital Course: Patient is a very pleasant 21-year-old male with no reported past medical history. He presented to the emergency department overnight with his mother to be evaluated for possible head injury and witnessed seizure activity. Patient was reportedly in his normal state of health and at home with his grandmother when his grandma suddenly heard a loud "Thud" in the bathroom shortly after followed by strange noises resulting in her walking in and finding her grandson with active seizure-like activity on the bathroom floor. She immediately went to his side reporting seizure activity only lasting momentarily followed by episode of slight confusion. Patient's grandmother called for patient's mother who reports she attempted to bring her son into the hospital, but he was completely a dense coming to the hospital stating that he was fine and he just fell and hit his head. Patient's mother reports she was watching her son closely because he has never had a fall or head injury before and has never had any seizure activity nor family history of seizures. She reports upon checking on him during the night noticed that he was not responding to her appropriately and was doing a strange motion with his right hand so she brought him to the emergency department for evaluation. After arriving to the emergency department patient was noted by staff to again have active seizure activity with positive involuntary loss of bladder and biting of tongue 2 events followed by extended periods of confusion and aggressive behaviors. Patient required extensive chemical sedation with a total of 16 mg of Ativan, 5 mg of Haldol and 1000 mg of Keppra within an 8 hour period. The patient is now postictal/sedated, he is awoken via repeated verbal stimuli and alert to person, place, time, and situation but drifting back into sleep during conversation requiring repeated verbal stimuli. When asked, patient admits to occasional alcohol use on weekends and at times drinking until he is drunk, but denies binge drinking and denies any recent drinking over the holidays, he does report daily cannabis use but denies any other drug use. Patient does have erythema and abrasion to left side of forehead resulting from initial fall/seizure occurring prior to arrival in the hospital. Patient's mother at bedside reports they believe her son struck his head on the ceramic tub when he fell in the bathroom prior to or during first seizure episode. Patient admitted to the hospital and monitored. Patient has been seizure free for greater than 24 hours. He has been started on Keppra 1000 mg twice a day and is medically stable for discharge home. Neurology clearing patient at this time recommending continuation of Keppra and follow up with neurologist outpatient. Diagnostic testing completed and reviewed: Lab findings: CBC revealed leukocytosis with WBC count of 16.6. CMP revealing hyperchloremia with chloride of 109 and hypocarbia with carbon dioxide of 17. Urinalysis positive for ketones, blood, and protein. Urine drug screen positive for benzodiazepines and marijuana. Serum alcohol level is less than 10. CT brain without contrast negative for acute intercranial process. EKG showing normal sinus rhythm at 85 bpm with peaked T waves, no previous EKGs available for comparison and BMP revealing potassium of 5.1 so no evidence of hyperkalemia. Chest x-ray negative for acute cardiopulmonary process. EEG resulted as normal EEG at this time. EEG was completed status post receiving 16 mg of Ativan, 5 mg of Haldol, and 1000 mg of Keppra within the 8 hour period. MRI negative for acute intercranial process. Physical exam: Vital signs reviewed and stable. General: Nontoxic, no distress and appears stated age. Derm: Skin warm and dry, normal coloration for ethnicity. Head: Normocephalic and symmetric. Patient with noted erythema and abrasion to left forehead, no hematoma or indentation. Eyes: EOMs intact, no lid lag, and anicteric sclera. Pupils equal 4 mm and reactive Mouth: no lip lesions, mucus membranes moist Cardiovascular: regular rate and rhythm with normal S1S2, no murmur, positive posterior tibial pulses bilaterally, and cap refill < 2 seconds. Lungs: Respirations even, regular, and unlabored on room air. Lungs CTA bilaterally, no rhonchi, no rales, no wheezing, and no accessory muscle usage. Abdominal: soft, nontender to palpation, no guarding, no appreciable organomegaly Ext: Movement intact, patient moving all 4 extremities independently.. No gross muscle atrophy, no edema, no contractures Neuro: Speech clear, face symmetrical. Patient moving all 4 extremities independently with no focal deficits noted. Patient not following commands at this time as he remains postictal/sedated and minimally cooperative. Psych: Alert and oriented to person, place, time, and situation after repeated verbal stimuli to awaken as patient is currently postictal/sedated. A total of 32 minutes of time were spent preparing this complex discharge summary. Pt was discharged on 06/03/22 at 3:20 PM Donta Barajas NP rendered care for this patient independently, reviewed the findings and plan as documented in the note above. I did not physically speak with or examine the patient on this date. Patient Condition at Discharge: Stable Plan - Discharge Summary Discharge Rx Participant: No New Discharge Prescriptions: New levETIRAcetam [Keppra] 1,000 mg PO Q12HR 60 Days #240 tab Discharge Medication List levETIRAcetam [Keppra] 1,000 mg PO Q12HR 60 Days #240 tab 06/03/22 [Rx] Follow up Appointment(s)/Referral(s): Anupam Christie MD [REFERRING] - 3 Days Brandon Miller MD [Medical Doctor] - 1 Week Patient Instructions/Handouts: New-Onset Seizure in Adults (DC) Activity/Diet/Wound Care/Special Instructions: Activity: As tolerated. Take breaks as needed. As we discussed, [place] state law states no driving until seizure free for 6 months. It is also important to avoid climbing ladders, operating dangerous or heavy machinery or unsupervised swimming until seizure free for 6 months. Diet: Heart healthy and carb consistent diet. Avoid salts, or foods with hidden salts such as canned or boxed foods and frozen dinners. Extra salt makes your heart work harder and traps the fluid in your body for longer. Special Instructions: Take all of your medications as directed and remember to keep all of your doctor's appointments and follow-up as needed. Lastly, as we discussed... Alcohol can lower your seizure threshold resulting in recurrence of seizure activity. Please refrain from alcohol use at this time. HAPPY BIRTHDAY!!!!!!!!!!!!!! Wishing you a truly blessed, happy, and healthy New Year!!! Thank you for allowing us to participate in your care, it was truly a pleasure having you for our patient!!! Discharge Disposition: HOME SELF-CARE
[2022-06-03 15:29] VITALS: BP 135/69; PULSE 101; TEMP 97.7
--- NOTE | 2022-06-04 10:58 | P.PN ---
Subjective Progress Note Date: 06/03/22 Patient was seen for a follow-up. Patient's mother and grandmother both were present today. Patient's mentation is completely back to normal. This was concurred by patient's mother and grandmother as well. Patient does have a mild headache. His balance in fine, no visual symptoms, no numbness tingling or speech difficulty. Patient does not remember much details about the incident yesterday. I spoke to patient's separately about his social history. Patient admits to smoking marijuana every day. He is not sure if he received a different strain of weed last time. He completely denies any other illicit drug use. Objective - Vital Signs Vital signs: Vital Signs Temp 98.4 F 06/03/22 09:54 Pulse 59 L 06/03/22 09:54 Resp 16 06/03/22 09:54 BP 95/55 06/03/22 09:54 Pulse Ox 99 06/03/22 09:54 FiO2 Intake & Output 06/02/22 06/03/22 06/03/22 18:59 06:59 18:59 Intake Total 128 Balance 128 Weight 85.4 kg Intake: IV 10 Invasive Line 3 10 Oral 118 Other: Voiding Method Urinal Urinal # Voids 1 - Exam Patient's mental status, speech and language functions are all normal. Cranial nerves are normal. Visual jerry are full, face is symmetric. Tongue protrudes to the midline. No evidence of tongue bite carissa noticed. On muscle strength testing there is no pronator drift and the strength is normal in arms and legs. Reflexes are 2+ all over and plantars downgoing bilaterally. No clonus. Sensory touch is equal. Cerebellar functions showed no ataxia. Gait is normal. - Labs CBC & Chem 7: 06/03/22 07:41 06/03/22 07:41 Labs: Abnormal Lab Results - Last 24 Hours (Table) 06/02/22 06/03/22 06/03/22 Range/Units 15:15 07:41 07:41 RBC 4.10 L (4.30-5.90) m/uL Hct 38.8 L (39.0-53.0) % Plt Count 147 L (150-450) k/uL Chloride 109 H (98-107) mmol/L BUN 8 L (9-20) mg/dL Total Protein 5.9 L (6.3-8.2) g/dL CSF RBC 3130 H (0-10) u/L Microbiology - Last 24 Hours (Table) 06/02/22 15:15 CSF Gram Stain - Preliminary Cerebral Spinal Fluid CSF Culture - Preliminary Assessment and Plan Assessment: * New onset seizure, unclear etiology. Patient had 3 seizures in 24 hours (1 at home and 2 in the ER). No obvious provoking factors identified. No evidence of encephalitis/meningitis. Patient denies any illicit drug use. Patient admits to very mild headache. Patient afebrile. * Encephalopathy, perhaps related to Ativan(received 16 mg in the last 24 hours). Also possibility of postictal state. Suspect some illicit drug use, but patient completely denies any substance use. No evidence of encephalitis. Patient's mentation back to normal. * Marijuana use Plan: * EEG revealed probably normal sleep EEG. Awake pattern not seen in the entire study, therefore underlying encephalopathy cannot be ruled out. Suggest prolonged EEG, if your suspicion for seizures disorder is high. No obvious epileptiform activity was seen in the study. * MRI of the brain with and without contrast was normal. No acute ischemic process. No inflammatory changes. I personally reviewed MRI, agree with the findings. * Lumbar puncture was performed, in which WBCs are 1, RBCs 3130, glucose normal 46 and proteins 53. Cultures negative. Viral cultures pending. * Continue Keppra 1000 mg twice a day. * Ceftriaxone was discontinued yesterday after LP results. Patient pulled IV lines, does not want any more IV lines. Normal CSF essentially rules out encephalitis. Patient's mentation is back to normal. We will discontinue acyclovir. Patient's white cells are normal, and he is afebrile. * Agree with thiamine, CIWA protocol. Patient denies significant alcoholism however. * Discussed with patient's mother and nursing staff in detail. * Patient may be discharged on Keppra 1000 mg twice a day. Recommend patient follow up with neurologist for prolonged EEG testing. * Patient, his mother and grandmother all were informed of [place] state law of no driving for 6 months, climbing ladders, operating dangerous machinery or unsupervised swimming. * Discussed with primary physician. Addendum: Viral cultures negative including HSV 1 & 2 PCR.
== END 2022-06-03 17:20 | disposition home or self-care (01) | DRG 100 ==
LOC: EC 00:13 → 3SCARD 03:25 → 6NMEDSUR 06-03 12:48
PROVIDERS: ADMIT Internal Medicine; ATTEND Internal Medicine
PROC: 009U3ZX Drainage of Spinal Canal, Percutaneous Approach, Diagnostic (ICD-10-PCS; principal; 2022-06-02)
DX: R56.9 Unspecified convulsions (principal); G92.8 Other toxic encephalopathy; F10.139 Alcohol abuse with withdrawal, unspecified; T42.4X5A Adverse effect of benzodiazepines, initial encounter; D72.829 Elevated white blood cell count, unspecified; E87.8 Other disorders of electrolyte and fluid balance, not elsewhere classified; S00.81XA Abrasion of other part of head, initial encounter; W19.XXXA Unspecified fall, initial encounter; Z28.310 Unvaccinated for COVID-19; Z78.1 Physical restraint status; R45.1 Restlessness and agitation
CPT/HCPCS: 36415; 62270; 70450; 70553; 71045; 80053; 80306; 80320; 81001; 82945; 83735; 83873; 84157; 84484; 85025; 85027; 85610; 85730; 87070; 87205; 87252; 89050; 93005; 95816; 96361; 96365; 96367; 96375; 96376; 99291

== ENCOUNTER 2023-12-24 14:28 | Emergency (ER) | payer OTHER ==
[2023-12-24 14:35] VITALS: TEMP 98.1
[2023-12-24] MEDS: levETIRAcetam IV 1,000 MG in SODIUM CHLORIDE 0.9% 250 ML IVPB ONE (15:15)
[2023-12-24 15:30] LABS: Basophils % (A) 1 %; Eosinophils # (A) 0.1 k/uL (0-0.7); Eosinophils % (A) 1 %; HGB 15.3 gm/dL (13.0-17.5); Lymphocytes # (A) 1.7 k/uL (1.0-4.8); Lymphocytes % (A) 27 %; MCH 32.7 pg (25.0-35.0); MCHC 33.4 g/dL (31.0-37.0); MCV 98.1 fL (80.0-100.0); Mean Platelet Volume 8.1; Monocytes # (A) 0.4 k/uL (0-1.0); Monocytes % (A) 7 %; Neutrophils # (A) 3.9 k/uL (1.3-7.7); Neutrophils % (A) 63 %; Platelet Count 200 k/uL (150-450); RBC 4.69 m/uL (4.30-5.90); RDW 12.4 % (11.5-15.5); WBC 6.2 k/uL (3.8-10.6)
[2023-12-24 15:42] LABS: ALT 17 U/L (4-49); AST 22 U/L (17-59); African American GFR (CKD) >90 (>60 ml/min/1.73 sqM); Albumin 4.6 g/dL (3.5-5.0); Alkaline Phosphatase 39 U/L (38-126); Anion Gap 13 mmol/L; Blood Urea Nitrogen 11 mg/dL (9-20); Calcium 9.4 mg/dL (8.4-10.2); Carbon Dioxide 17 mmol/L (22-30); Chloride 110 mmol/L (98-107); Creatine Kinase 108 U/L (55-170); Glucose 89 mg/dL (74-99); Magnesium 1.7 mg/dL (1.6-2.3); Non-African American GFR(CKD) >90 (>60 ml/min/1.73 sqM); Potassium 4.2 mmol/L (3.5-5.1); Sodium 140 mmol/L (137-145); Total Protein 6.7 g/dL (6.3-8.2)
--- NOTE | 2023-12-24 16:17 | ED ---
Seizure HPI - General Chief Complaint: Seizure Stated Complaint: Seizure Time Seen by Provider: 12/24/23 14:49 Source: patient, family, EMS, RN notes reviewed Mode of arrival: EMS Limitations: no limitations - History of Present Illness Initial Comments: 23-year-old male with a history of seizure disorder who was brought in by EMS after sustaining a approximately 1 minute long seizure. He had an injury to his nose he complains of no other complaints no pain no head neck or back pain at this time he is awake alert and oriented upon arrival. This was a witnessed seizure. He had a seizure yesterday. Lasting possibly just as long he sustained some abrasions to the left side of his chest wall them but he complains of no pain at this time. He is compliant with this medication he did not take today's dose yet. He is scheduled to see Dr. Waller on the of this month MD Complaint: seizure - Related Data Home Medications Medication Instructions Recorded Confirmed levETIRAcetam [Keppra] 500 mg PO BID 12/24/23 12/24/23 Allergies Allergy/AdvReac Type Severity Reaction Status Date / Time No Known Allergies Allergy Verified 12/24/23 16:14 Review of Systems ROS Statement: Those systems with pertinent positive or pertinent negative responses have been documented in the HPI. ROS Other: All systems not noted in ROS Statement are negative. Past Medical History Past Medical History: Seizure Disorder History of Any Multi-Drug Resistant Organisms: None Reported Past Surgical History: No Surgical Hx Reported Smoking Status: Never smoker, Vaper Past Alcohol Use History: Occasional Past Drug Use History: Marijuana - Past Family History family Additional Family Medical History / Comment(s): no reported seizures General Exam - General Exam Comments Initial Comments: This is a well-developed well-nourished awake alert oriented x 4 male [place] Coma Scale of 15 Limitations: altered mental status General appearance: alert, in no apparent distress Head exam: Present: normocephalic, normal inspection, other (Abrasion on the right side of his kamille but no tenderness to palpation no subluxation step-off or crepitation.) Eye exam: Present: normal appearance, PERRL, EOMI. Absent: scleral icterus, conjunctival injection, periorbital swelling ENT exam: Present: normal exam, mucous membranes moist Neck exam: Present: normal inspection, full ROM, other (Stridor JVD or bruits). Absent: tenderness, meningismus, lymphadenopathy Respiratory exam: Present: normal lung sounds bilaterally, other (Abraision to the left lateral chest wall but no step-off no crepitation some bruising noted. No tenderness). Absent: respiratory distress, wheezes, rales, rhonchi, stridor Cardiovascular Exam: Present: regular rate, normal rhythm, normal heart sounds. Absent: systolic murmur, diastolic murmur, rubs, gallop, clicks GI/Abdominal exam: Present: soft, normal bowel sounds. Absent: distended, tenderness, guarding, rebound, rigid Extremities exam: Present: normal inspection, full ROM, normal capillary refill. Absent: tenderness, pedal edema, joint swelling, calf tenderness Back exam: Present: normal inspection Neurological exam: Present: alert, oriented X3, CN II-XII intact Psychiatric exam: Present: normal affect, normal mood Skin exam: Present: warm, dry, intact, normal color. Absent: rash Course Vital Signs 12/24/23 14:31 Temperature 98.1 F Pulse Rate 91 Respiratory 18 Rate Blood Pressure 127/62 O2 Sat by Pulse 95 Oximetry Medical Decision Making - Medical Decision Making The patient tolerated the IV medication well I did discuss the findings with him and his mother. Patient will be discharged he does have a follow-up with neurology on the of this month he is encouraged to do that and continue his current dosing of Keppra. Was pt. sent in by a medical professional or institution (, PA, SHOPFITTER, urgent care, hospital, or senior living...) When possible be specific @ -[No] Did you speak to anyone other than the patient for history (EMS, parent, family, police, friend...)? What history was obtained from this source @ -[Paramedics] Did you review nursing and triage notes (agree or disagree)? Why? @ -[I reviewed and agree with nursing and triage notes] Were old charts reviewed (outside hosp., previous admission, EMS record, old EKG, old radiological studies, urgent care reports/EKG's, senior living records)? Report findings @ -[No old charts were reviewed] Differential Diagnosis (chest pain, altered mental status, abdominal pain women, abdominal pain men, vaginal bleeding, weakness, fever, dyspnea, syncope, headache, dizziness, GI bleed, back pain, seizure, CVA, palpatations, mental health, musculoskeletal)? @ -[not applicable] EKG interpreted by me (3pts min.). @ -[As above EKG interpreted by me normal sinus rhythm at 72 DC interval 161 QRS duration 105 QT/QTc 361/[address]-T wave changes] X-rays interpreted by me (1pt min.). @ -[None done] CT interpreted by me (1pt min.). @ -[None done] U/S interpreted by me (1pt. min.). @ -[None done] What testing was considered but not performed or refused? (CT, X-rays, U/S, labs)? Why? @ -[None] What meds were considered but not given or refused? Why? @ -[None] Did you discuss the management of the patient with other professionals (professionals i.e. , PA, SHOPFITTER, lab, RT, psych nurse, social service worker, floor grinder, teacher, complaint investigations officer, case filler)? Give summary @ -[No] Was smoking cessation discussed for >3mins.? @ -[No] Was critical care preformed (if so, how long)? @ -[No] Were there social determinants of health that impacted care today? How? (Homelessness, low income, unemployed, alcoholism, drug addiction, transportation, low edu. Level, literacy, decrease access to med. care, longterm, rehab)? @ -[No] Was there de-escalation of care discussed even if they declined (Discuss DNR or withdrawal of care, Hospice)? DNR status @ -[No] What co-morbidities impacted this encounter? (DM, HTN, Smoking, COPD, CAD, Cancer, CVA, ARF, Chemo, Hep., AIDS, mental health diagnosis, sleep apnea, morbid obesity)? @ -[Seizure disorder] Was patient admitted / discharged? Hospital course, mention meds given and rou te, prescriptions, significant lab abnormalities, going to OR and other pertinent info. @ -[hospital course discharged home with his mother] Undiagnosed new problem with uncertain prognosis? @ -[No] Drug Therapy requiring intensive monitoring for toxicity (Heparin, Nitro, Insulin, Cardizem)? @ -[No] Were any procedures done? @ -[No] Diagnosis/symptom? @ -[breakthrough seizure]AcuteAcuteNoNoNoDefaultAcuteBreakthrough seizureNoNoNoHospital course discharged home with his motherSeizure disord erNoNoNoNoNoNoneNoneNone doneNone doneNone doneAs above EKG interpreted by me normal sinus rhythm at 72 DC interval 161 QRS duration 105 QT/QTc 361/[address]-T wave changesNot applicableNo old charts were reviewedI reviewed and agree with nursing and triage notesParamedicsNoth nursing and triage notesParamedicsNo] Uncomplicated (without systemic symptoms) or Complicated (systemic symptoms)? @ -[default] Side effects of treatment? @ -[No] Exacerbation, Progression, or Severe Exacerbation? @ -[No] Poses a threat to life or bodily function? How? (Chest pain, [place], ND, pneumonia, PE, COPD, DKA, ARF, appy, cholecystitis, CVA, Diverticulitis, Homicidal, Suicidal, threat to staff... and all critical care pts) @ -[No] - Lab Data Result diagrams: 12/24/23 15:01 12/24/23 15:01 Lab Results 12/24/23 12/24/23 Range/Units 15:01 15:01 WBC 6.2 (3.8-10.6) k/uL RBC 4.69 (4.30-5.90) m/uL Hgb 15.3 (13.0-17.5) gm/dL Hct 46.0 (39.0-53.0) % MCV 98.1 (80.0-100.0) fL MCH 32.7 (25.0-35.0) pg MCHC 33.4 (31.0-37.0) g/dL RDW 12.4 (11.5-15.5) % Plt Count 200 (150-450) k/uL MPV 8.1 Neutrophils % 63 % Lymphocytes % 27 % Monocytes % 7 % Eosinophils % 1 % Basophils % 1 % Neutrophils # 3.9 (1.3-7.7) k/uL Lymphocytes # 1.7 (1.0-4.8) k/uL Monocytes # 0.4 (0-1.0) k/uL Eosinophils # 0.1 (0-0.7) k/uL Basophils # 0.0 (0-0.2) k/uL Sodium 140 (137-145) mmol/L Potassium 4.2 (3.5-5.1) mmol/L Chloride 110 H (98-107) mmol/L Carbon Dioxide 17 L (22-30) mmol/L Anion Gap 13 mmol/L BUN 11 (9-20) mg/dL Creatinine 0.73 (0.66-1.25) mg/dL Est GFR (CKD-EPI)AfAm >90 (>60 ml/min/1.73 sqM) Est GFR (CKD-EPI)NonAf >90 (>60 ml/min/1.73 sqM) Glucose 89 (74-99) mg/dL Calcium 9.4 (8.4-10.2) mg/dL Magnesium 1.7 (1.6-2.3) mg/dL Total Bilirubin 1.0 (0.2-1.3) mg/dL AST 22 (17-59) U/L ALT 17 (4-49) U/L Alkaline Phosphatase 39 (38-126) U/L Creatine Kinase 108 (55-170) U/L Total Protein 6.7 (6.3-8.2) g/dL Albumin 4.6 (3.5-5.0) g/dL Disposition Clinical Impression: Generalized seizure Disposition: HOME SELF-CARE Condition: Good Instructions (If sedation given, give patient instructions): Seizure/Epilepsy Discharge Instructions & Follow-Up, Recurrent Seizures in Adults (ED) Is patient prescribed a controlled substance at d/c from ED?: No Referrals: None,Stated [Primary Care Provider] - 1-2 days Time of Disposition: 16:27 Decision Date: 12/24/23 Decision Time: 16:28
[2023-12-24 16:57] VITALS: BP 112/65; PULSE 68; RESP 16
== END 2023-12-24 16:57 | disposition home or self-care (01) ==
LOC: EC 14:28
DX: G40.909 Epilepsy, unspecified, not intractable, without status epilepticus (principal); F17.290 Nicotine dependence, other tobacco product, uncomplicated
CPT/HCPCS: 99285; 96374 ×2; 36415; 93005; 80053; 82550; 83735; 85025; 99284; J1953